=== PATIENT | male | born 1980 | race Caucasian/White ===

== ENCOUNTER 2017-11-21 12:49 | Emergency (ER) | payer OTHER ==
[2017-11-21] MEDS: IBUPROFEN 600 MG TAB PO (13:41)
[2017-11-21] MEDS: CEPHALEXIN 500 MG CAP PO (13:41)
[2017-11-21] MEDS: TRIMETHOPRIM/SULFAMETHOX (DS) TAB PO (13:41)
[2017-11-21] MEDS: LIDOCAINE 1% (MDV) 10 ML INJ INFIL (13:42)
== END 2017-11-21 14:37 | disposition home or self-care (01) ==
LOC: FTE 12:49
DX: L02.31 Cutaneous abscess of buttock (principal)
CPT/HCPCS: 10060; 99284-25